=== PATIENT | male | born 1970 | race Caucasian/White ===

== ENCOUNTER 2019-06-23 06:33 | Outpatient (RCR) | payer MEDICAID ==
[~2019-06-23] VITALS: Ht 177.8 cm; Wt 93.2 kg
[2019-06-23] MEDS ORDERED: PARO20TA5 PO (12:02)
[2019-06-23] MEDS ORDERED: DESM0.2T29 PO (12:02)
[2019-06-23] MEDS ORDERED: CETI10TA17 PO (12:02)
[2019-06-23] MEDS ORDERED: BENZ1TAB6 PO (12:02)
[2019-06-23] MEDS ORDERED: MELA1TAB15 PO (12:02)
[2019-06-23] MEDS ORDERED: DIVA-76 PO (12:02)
[2019-06-23] MEDS ORDERED: BENZ0.5T42 PO (12:02)
[2019-06-23] MEDS ORDERED: SIMV20TA26 PO (12:02)
[2019-06-23] MEDS ORDERED: DIVA-74 PO (12:02)
[2019-06-23] MEDS ORDERED: LURA120T PO (12:02)
== END 2019-06-23 15:47 | disposition home or self-care (01) ==
LOC: PREOP 06:33
PROVIDERS: ATTEND Dentist General Practice
DX: Z01.818 Encounter for other preprocedural examination (principal); Z11.59 Encounter for screening for other viral diseases
CPT/HCPCS: 87635

== ENCOUNTER 2019-06-27 06:38 | Day surgery (SDC) | payer MEDICARE, MEDICAID ==
--- NOTE | 2019-06-22 15:57 | HISTORY AND PHYSICAL ---
DATE OF SERVICE: CHIEF COMPLAINT: To have teeth surgery by Dr. Meza, the patient came in with another person who watches over him. ALLERGIC TO MEDICATIONS: Denies. SURGERY PREVIOUSLY: Denies. MEDICATIONS: 1. ____ 1 mg b.i.d. 2. Paxil 20 mg 1 daily. 3. Cetirizine 10 mg 1 daily. 4. Desmopressin 0.2 mg daily. 5. Depakote 500 mg 1 daily. 6. Latuda 80 mg 1 daily. 7. Melatonin 5 mg. 8. Olanzapine 5 mg 1 daily. 9. Simvastatin 20 mg. 10. Tylenol p.r.n. 11. Tums p.r.n. 12. Benadryl p.r.n. FAMILY HISTORY: Denies asthma, TB, diabetes, heart disease, lung disease or cancer. REVIEW OF SYSTEMS: HEAD: Denies headache, dizziness or fainting. EYES, EARS, NOSE AND THROAT: Denies diplopia, tinnitus or sore throat. RESPIRATORY: Denies asthma, TB, coughing, congestion or wheezing. CARDIOVASCULAR: Denies heart problems, chest pain or shortness of breath. GASTROINTESTINAL: Appetite good. Denies blood in stools, diarrhea, constipation, nausea, vomiting. GENITOURINARY: Denies blood, pain or frequency. PHYSICAL EXAMINATION: GENERAL: The patient is a white male, well nourished, well developed, in no acute respiratory distress. VITAL SIGNS: Pulse 72, blood pressure 100/80, height 5 feet 10 inches and weight 205. EARS: No discharge. EYES: No conjunctivitis or icterus. NECK: Thyroid not enlarged. No abnormal cervical lymphadenopathy noted. HEART: Regular rate and rhythm. LUNGS: Clear to auscultation. ABDOMEN: Soft. Liver and spleen nonpalpable. ASSESSMENT AND PLAN: The patient is okay to have teeth surgery. Job ID: [id number] DocumentID: [id number] Dictated Date: 06/22/2019 10:18:02 Ignition Mechanic Date: 06/22/2019 10:53:01 Dictated By: AMARILYS FIELD DO
[~2019-06-27] VITALS: Ht 177.8 cm; Wt 93.2 kg
[2019-06-27] VITALS (7 sets, daily range): BP systolic 107–131; BP diastolic 57–88
[~2019-06-27 06:38] MED LIST: BENZ0.5T42 PO; BENZ1TAB6 PO; CETI10TA17 PO; DESM0.2T29 PO; DIVA-74 PO; DIVA-76 PO; LURA120T PO; MELA1TAB15 PO; PARO20TA5 PO; SIMV20TA26 PO
--- OUTSIDE RECORDS SUMMARY | 2019-06-27 06:42 | XMS REPORT | Continuity of Care Document ---
Author Organization Unknown Address Unknown Phone Unavailable Allergies Active Description Code Type Severity Reaction Onset Reported/Identified Relationship to Patient Clinical Status Yes No Known Drug Allergies [id number] Drug Allergy Unknown N/A 06/23/2019 Medications There is no data. Problems Date Dx Coded Attending Type Code Diagnosis Diagnosed By 01/14/1546 NITA BEGUM DDS Ot Z01.818 ENCOUNTER FOR OTHER PREPROCEDURAL EXAMIN 01/14/1546 NITA BEGUM DDS Ot Z11.59 ENCOUNTER FOR SCREENING FOR OTHER VIRAL Procedures There is no data. Results Test Result Range VALPROIC ACID/DEPAKOTE - 10/04/18 10:30 VALPROIC ACID 118.2 mg/L 50.0-100.0 VALPROIC ACID/DEPAKOTE - 11/01/18 10:13 VALPROIC ACID 100.1 mg/L 50.0-100.0 Coronavirus SARS-CoV-2 SO 2018 - 0 13:15 Coronavirus Ab [Units/volume] in Serum Negative Negative Encounters ACCT No. Visit Date/Time Discharge Status Pt. Type Provider Facility Loc./Unit Complaint [id number] 05/24/2019 09:40:00 05/24/2019 23:59: 59 CLS Outpatient DESIRAE [facility] [id number] 11/01/2018 09:40:00 Document Registration [id number] 10/04/2018 11:00:00 Document Registration [id number] 06/23/2019 06:33:00 020 15:47:00 DIS Outpatient NITA BEGUM DDS [facility] [id number] 06/27/2019 12:30:00 P EN Preadmit NITA BEGUM DDS [facility]
[2019-06-27] MEDS ORDERED: LIDOCAINE PF 2% 5 ML (XYLOCAINE) VIAL ONE (07:01)
[2019-06-27] MEDS ORDERED: SEVOFLURANE (ULTANE) 15 ML INHAL SOLN ONE ×8 (07:01→08:45)
[2019-06-27] MEDS ORDERED: proPOfol 200 MG/20 ML (DIPRIVAN) VIAL IV ONE (07:01)
[2019-06-27] MEDS ORDERED: fentaNYL INJECTION 100 MCG/2 ML AMP ONE (07:02)
[2019-06-27] MEDS ORDERED: NS IV 500 ML 500 ML IV PRN (07:03)
[2019-06-27] MEDS ORDERED: IBUPROFEN SUSP 100MG/5ML (MOTRIN) UDC PO ONE (07:15)
[2019-06-27] MEDS ORDERED: MIDAZOLAM SYRUP (VERSED) 10MG/5ML UDC PO ONE (07:15)
[2019-06-27] MEDS ORDERED: PHENYLEPHRINE 0.25% NASAL SPR (NEO-SYNEPHRINE) 15 ML NS ONE ×2 (07:15→07:16)
[2019-06-27] MEDS ORDERED: MIDAZOLAM 2 MG/2 ML (VERSED) VIAL ONE (07:19)
[2019-06-27] MEDS ORDERED: LACTATED RINGERS 1,000 ML IV PRN (07:24)
[2019-06-27] MEDS ORDERED: ONDANSETRON 4 MG/2 ML (SDV) Z0FRAN ONE (08:45)
[2019-06-27] MEDS ORDERED: ROCURONIUM 10 MG/ML 5 ML SYRINGE IV ONE (08:45)
[2019-06-27] MEDS ORDERED: DEXAMETHASONE 10 MG/ML (DECADRON) 1 ML VIAL ONE (08:45)
[2019-06-27] MEDS ORDERED: NEOSTIGMINE 3 MG/3 ML VIAL ONE (08:56)
[2019-06-27] MEDS ORDERED: GLYCOPYRROLATE 0.2 MG/ML (ROBINUL) 2 ML VIAL ONE (08:56)
--- NOTE | 2019-06-27 14:34 | Anesthesia-General Post-Op ---
General Patient Condition Mental Status/LOC: Same as Preop Cardiovascular: Satisfactory Nausea/Vomiting: Absent Respiratory: Satisfactory Pain: Controlled Complications: Absent Post Op Complications Complications None Follow Up Care/Instructions Patient Instructions None needed. Anesthesia/Patient Condition Patient Condition Patient is doing well, no complaints, stable vital signs, no apparent adverse anesthesia problems. No complications reported per nursing. PERRY GUIDRY CRNA June 27, 2019 14:34
--- NOTE | 2019-06-27 15:47 | OPERATIVE REPORT ---
DATE OF SERVICE: 06/27/2019 PREOPERATIVE DIAGNOSIS: Dental caries. POSTOPERATIVE DIAGNOSIS: Dental caries. OPERATION PERFORMED: Repair of numerous carious teeth and extraction of others utilizing composite resin and stainless steel crowns as well as vital pulp cap therapy. DESCRIPTION OF PROCEDURE: The patient was treated on an outpatient basis and following suitable premedication, was taken to the operating room and placed in the supine position upon the table. Anesthesia was induced. General anesthesia was administered and throat pack was placed consisting of one wet 4 x 4 gauze sponge and maintained in place throughout the procedure. Mouth opening was maintained at all times with simple digital pressure. No mechanical retractors of any kind were utilized. Caries was removed from teeth numbers 3, 6 14, 15, 29 and 31 and teeth numbers 6, 15 and 29, subsequently repaired with composite resin. Tooth #30 and following caries removal received the indirect pulp cap and then a stainless steel crown was placed. Teeth numbers 3, 14 and 31 were extracted. The patient tolerated this brief procedure quite nicely and following a thorough debridement of the oral cavity with a copious fluid border, adequate flexion and compressed air. The throat pack was removed. The patient was extubated and taken to recovery in quite satisfactory condition. Job ID: [id number] DocumentID: [id number] Dictated Date: 06/27/2019 14:40:58 Fact Checker Date: 06/27/2019 15:47:02 Dictated By: NITA BEGUM DDS
== END 2019-06-27 10:20 | disposition home or self-care (01) ==
LOC: SDC 06:38
PROVIDERS: ATTEND Dentist General Practice
DX: K02.9 Dental caries, unspecified (principal); E78.5 Hyperlipidemia, unspecified; J30.9 Allergic rhinitis, unspecified; Z79.899 Other long term (current) drug therapy; Z88.0 Allergy status to penicillin
CPT/HCPCS: 87081

== ENCOUNTER 2021-03-06 16:12 | Emergency (ER) | payer MEDICARE, MEDICAID ==
[~2021-03-06] VITALS: Ht 170 cm; Wt 90.0 kg
--- OUTSIDE RECORDS SUMMARY | 2021-03-06 16:17 | XMS REPORT | Clinical Summary ---
Author Author [facility] Organization [facility] Address Unknown Phone Unavailable Care Team Providers Care Transportation Dispatch Manager Name Role Phone PCP Unavailable Allergies Not on File Medications Not on file Active Problems Not on file Social History Date Tobacco Use Types Packs/Day Years Used Never Assessed Sex Assigned at Date Recorded Not on file Last Filed Vital Signs Not on file Plan of Treatment Not on file Results Not on filefrom Last 3 Months
[2021-03-06] MEDS ORDERED: NS IV 1000 ML 1,000 ML IV SCH (16:30)
[2021-03-06] MEDS ORDERED: BENZTROPINE 2 MG/2 ML INJ (COGENTIN) AMP IV ONE (16:30)
--- NOTE | 2021-03-06 16:33 | ED General ---
General Chief Complaint: Neurological Problems Stated Complaint: STROKE SYMPTOMS Nursing Triage Note: ARRIVED VIA AMB TO ROOM 07. WORKER STATES BETWEEN 9-10 AM HE STARTED NOTICING A CHANGE IN THE PT. NOT MAKING SENSE AND NOT ABLE TO DO SIMPLE TASKS. Source of Information: Patient, Caregiver Exam Limitations: No Limitations History of Present Illness Date Seen by Provider: Mar 06, 2021 Time Seen by Provider: 16:12 Initial Comments Patient to the ER by private conveyance with caregiver from the long term where he lives with chief complaint that he typically is highly functioning doing his own laundry but they found him in the laundry room throwing paper towels into the wash machine. He had some confused speech. He is typically oriented at baseline. He is not have any lateralizing symptoms. No history of stroke or atrial fibrillation. Not on any blood thinners. No trauma except for a fall 2 weeks ago. He was doing fine earlier this morning however the staff member who accompanies him states the last known well time was 10:00 this morning. He is not having any weakness. He is complaining of pain in his fingers. He does not endorse dysuria diarrhea nausea vomiting or constipation. He is on olanzapine, antiepileptics, benztropine which she has received all his medications this morning but not his 5:00 evening meds. Patient is oriented to time and place as well as situation. He has a roommate in his long term with COVID-19. Allergies and Home Medications Allergies Coded Allergies: No Known Drug Allergies (Unverified , 06/23/19) Patient Home Medication List Home Medication List Reviewed: Yes Benztropine Mesylate (Benztropine Mesylate) 0.5 Mg Tablet, 0.5 MG PO DAILY, (Reported) Entered as Reported by: MOHSEN PAZ on 06/23/191201 Benztropine Mesylate (Benztropine Mesylate) 1 Mg Tablet, 1 MG PO HS, (Reported) Entered as Reported by: MOHSEN PAZ on 06/23/191201 Cetirizine HCl (Cetirizine HCl) 10 Mg Tablet, 10 MG PO DAILY, (Reported) Entered as Reported by: MOHSEN PAZ on 06/23/191201 Desmopressin Acetate (Desmopressin Acetate) 0.2 Mg Tablet, 0.2 MG PO DAILY, (Reported) Entered as Reported by: MOHSEN PAZ on 06/23/19 120 Divalproex Sodium (Divalproex Sodium) 250 Mg Tablet.dr, 250 MG PO DAILY, (Reported) Entered as Reported by: MOHSEN PAZ on 06/23/19 120 Divalproex Sodium (Divalproex Sodium) 500 Mg Tablet.dr, 500 MG PO HS, (Reported) Entered as Reported by: MOHSEN PAZ on 06/23/19 120 Lurasidone HCl (Latuda) 120 Mg Tablet, 120 MG PO DAILY@1800, (Reported) Entered as Reported by: MOHSEN PAZ on 06/23/19 120 Melatonin/Pyridoxine (Melatonin 5 mg Tablet) 1 Each Tablet, 5 MG PO HS, (Reported) Entered as Reported by: MOHSEN PAZ on 06/23/19 120 Paroxetine HCl (Paroxetine HCl) 20 Mg Tablet, 20 MG PO DAILY, (Reported) Entered as Reported by: MOHSEN PAZ on 06/23/19 120 Simvastatin (Simvastatin) 20 Mg Tablet, 20 MG PO HS, (Reported) Entered as Reported by: MOHSEN PAZ on 06/23/19 120 Review of Systems Review of Systems Constitutional: No chills, No diaphoresis EENTM: No ear discharge, No hearing loss, No ear pain Respiratory: No cough, No short of breath Cardiovascular: No chest pain, No edema Gastrointestinal: No abdominal pain, No constipation, No diarrhea, No nausea, No vomiting Genitourinary: No discharge, No dysuria Musculoskeletal: No back pain, No joint pain Skin: No pruritus, No rash Psychiatric/Neurological: Denies Anxiety, Denies Depressed All Other Systems Reviewed Negative Unless Noted: Yes Past Oifgtob-[id number]-[id number] Hx Patient Social History Tobacco Use?: No Use of E-Cig and/or Vaping dev: No Immunizations Up To Date PED Vaccines UTD: No Seasonal Allergies Seasonal Allergies: Yes Past Medical History Surgeries: No Respiratory: No Cardiac: No Neurological: Yes Genitourinary: No Gastrointestinal: No Musculoskeletal: No Endocrine: No HEENT: Yes Cancer: No Psychosocial: Yes Sleep Difficulties Integumentary: No Blood Disorders: No Physical Exam Vital Signs Vital Signs - First Documented 03/06/21 16:15 Temp 39.9 Pulse 110 Resp 16 B/P (MAP) 127/112 (117) Pulse Ox 100 O2 Delivery Room Air Capillary Refill : Less Than 3 Seconds Height, Weight, BMI Height: '" Weight: lbs. oz. kg; 31.00 BMI Method: General Appearance: Anxious, Mild Distress Eyes: Bilateral Eye Normal Inspection, Bilateral Eye PERRL, Bilateral Eye EOMI HEENT: PERRL/EOMI, TMs Normal, Normal ENT Inspection; No Pharynx Normal, No Moist Mucous Membranes (Dry oral mucosa) Neck: Full Range of Motion, Normal Inspection Respiratory: Lungs Clear, Normal Breath Sounds, No Accessory Muscle Use, No Respiratory Distress Cardiovascular: Regular Rate, Rhythm, No Edema, Normal Peripheral Pulses Gastrointestinal: Normal Bowel Sounds, No Organomegaly, Non Tender, Soft Neurologic/Psychiatric: Alert, Oriented x3, No Motor/Sensory Deficits Skin: Normal Color, Warm/Dry, Other (Dry, bloody cuticles all fingers) Progress/Results/Core Measures Suspected Sepsis SIRS Temperature: Pulse: 110 Respiratory Rate: 16 Laboratory Tests 03/06/21 16:28: White Blood Count 7.0 Blood Pressure 127 /112 Mean: 117 Laboratory Tests 03/06/21 16:28: Creatinine 0.89, Platelet Count 207, Total Bilirubin 0.4 Results/Orders Lab Results Laboratory Tests Test 03/06/21 16:24 03/06/21 16:28 Range/Units Influenza Type A (RT-PCR) Not Detected Not Detecte Influenza Type B (RT-PCR) Not Detected Not Detecte SARS-CoV-2 RNA (RT-PCR) Detected H Not Detecte White Blood Count 7.0 4.3-11.0 10^3/uL Red Blood Count 3.76 L 4.30-5.52 10^6/uL Hemoglobin 12.0 L 13.3-17.7 g/dL Hematocrit 34 L 40-54 % Mean Corpuscular Volume 91 80-99 fL Mean Corpuscular Hemoglobin 32 25-34 pg Mean Corpuscular Hemoglobin Concent 35 32-36 g/dL Red Cell Distribution Width 12.0 10.0-14.5 % Platelet Count 207 130-400 10^3/uL Mean Platelet Volume 9.2 9.0-12.2 fL Immature Granulocyte % (Auto) 0 % Neutrophils (%) (Auto) 71 42-75 % Lymphocytes (%) (Auto) 19 12-44 % Monocytes (%) (Auto) 9 0-12 % Eosinophils (%) (Auto) 0 0-10 % Basophils (%) (Auto) 0 0-10 % Neutrophils # (Auto) 5.0 1.8-7.8 X 10^3 Lymphocytes # (Auto) 1.3 1.0-4.0 X 10^3 Monocytes # (Auto) 0.7 0.0-1.0 X 10^3 Eosinophils # (Auto) 0.0 0.0-0.3 10^3/uL Basophils # (Auto) 0.0 0.0-0.1 10^3/uL Immature Granulocyte # (Auto) 0.0 0.0-0.1 10^3/uL Sodium Level 130 L 135-145 MMOL/L Potassium Level 4.7 3.6-5.0 MMOL/L Chloride Level 94 L 98-107 MMOL/L Carbon Dioxide Level 27 21-32 MMOL/L Anion Gap 9 5-14 MMOL/L Blood Urea Nitrogen 20 H 7-18 MG/DL Creatinine 0.89 0.60-1.30 MG/DL Estimat Glomerular Filtration Rate 104 BUN/Creatinine Ratio 22 Glucose Level 94 70-105 MG/DL Calcium Level 9.3 8.5-10.1 MG/DL Corrected Calcium 8.9 8.5-10.1 MG/DL Total Bilirubin 0.4 0.1-1.0 MG/DL Aspartate Amino Transf (AST/SGOT) 29 5-34 U/L Alanine Aminotransferase (ALT/SGPT) 28 0-55 U/L Alkaline Phosphatase 47 40-136 U/L Troponin I < 0.028 <0.028 NG/ML C-Reactive Protein High Sensitivity 0.07 0.00-0.50 MG/DL Total Protein 7.3 6.4-8.2 GM/DL Albumin 4.5 3.2-4.5 GM/DL Serum Alcohol < 10 <10 MG/DL My Orders Orders - SARAN MATIAS Ed Iv/Invasive Line Start (03/06/21 16:26) Ns Iv 1000 Ml (Sodium Chloride 0.9%) (03/06/21 16:30) Covid 19 Inhouse Test (03/06/21 16:26) Influenza A And B By Pcr (03/06/21 16:26) Cbc With Automated Diff (03/06/21 16:26) Comprehensive Metabolic Panel (03/06/21 16:26) Hs C Reactive Protein (03/06/21 16:26) Alcohol (03/06/21 16:26) Benztropine Injection (Cogentin Injectio (03/06/21 16:30) Ekg Tracing (03/06/21 16:34) Continuous Ekg Monitoring (03/06/21 16:34) Troponin I [place] (03/06/21 16:34) Olanzapine Orally Dissolve Tab (Zyprexa (03/06/21 18:00) Medications Given in ED Current Medications Medications Dose Ordered Sig/Manisha Route Start Time Stop Time Status Last Admin Dose Admin Benztropine Mesylate 2 mg ONCE ONCE IV 03/06/21 16:30 03/06/21 16:31 DC 03/06/21 16:41 2 MG Vital Signs/I&O 03/06/21 16:15 Temp 39.9 Pulse 110 Resp 16 B/P (MAP) 127/112 (117) Pulse Ox 100 O2 Delivery Room Air Capillary Refill : Less Than 3 Seconds Blood Pressure Mean: 117 Progress Note #1: Time: 16:31 Progress Note Patient is oriented and does follow commands however he does appear agitated confused and looks like he is having an agitated hyperactive delirium. 2 mg IV Cogentin have been ordered. Were looking for infectious under lying cause versus medication versus other. He has COVID exposures in the home so we will get a swab of COVID and influenza if his viral panel is negative then we would consider expanding to a septic work-up. We will attempt to collect urine and get a chest x-ray Progress Note #2: Time: 17:52 Progress Note Patient Delirium is a little better after the benztropine. He is not actually having dystonic reaction is much as he is having delirium secondary to COVID. We discontinued the CT scan and urinalysis. He is gotten his liter of fluids. His more oral mucosa is moist. Staff says he is been drinking very well and has had good vital signs. We will have him take vital signs daily give him some Imodium, Zofran and give him his olanzapine a little early before he leaves. Return precautions were discussed. ECG Initial ECG Impression Date: Mar 06, 2021 Initial ECG Impression Time: 16:18 Initial ECG Rate: 107 Initial ECG Rhythm: S.Tach Initial ECG Intervals: LA (207) Initial ECG Impression: Normal Initial ECG Comparisson: No Previous ECG Available Comment Sinus tachycardia without clinically relevant ST elevation or depression. Departure Impression Primary Impression: COVID-19 Additional Impression: Delirium due to another medical condition, acute, hyperactive Disposition: 01 HOME, SELF-CARE Condition: Stable Departure-Patient Inst. Decision time for Depature: 17:53 Referrals: AMARILYS FILED DO (PCP) Primary Care Physician Patient Instructions: Delirium (Confusion) (DC), COVID-19 (DC) Add. Discharge Instructions: COVID-19 infection is not causing any difficulties with breathing right now. It is probably responsible for loose stools nausea or vomiting. The delirium or confusion that will wax and wane over the next week or so is caused by the COVID-19. The best thing is to keep him in familiar environment. Check his vitals once a day for the next week. If his oxygen saturations are consistently below 90% while at rest then he needs to return to the ER. He needs to drink plenty of fluids over the next week. If he has diarrhea give him 2 tablets of Imodium followed by 1 tablet every 4 hours afterwards that he still is having loose watery diarrhea. If he has nausea or vomiting give him ondansetron under the tongue every 6 hours. Isolation, wash hands and wear a mask around other people until 03/16/2021. Must be fever free for the final 24 hours to come off isolation. Follow-up with PCP as needed for symptom management. All discharge instructions reviewed with patient and/or family. Voiced understanding. Scripts Loperamide HCl (Imodium A-D) 2 Mg Capsule 4 MG PO Q4H PRN for DIARRHEA, #20 CAP 0 Refills 2 tablets for diarrhea followed by 1 tablet every 4 hours afterwards until watery diarrhea stops Prov: SARAN MATIAS 03/06/21 Ondansetron (Ondansetron Odt) 4 Mg Tab.rapdis 4 MG PO Q6H PRN for NAUSEA/VOMITING, #10 TAB 0 Refills Prov: SARAN MATIAS 03/06/21 Copy Copies To 1: AMARILYS FIELD TITUS J Mar 06, 2021 16:33
[2021-03-06 16:42] LABS: BASOPHILS % (AUTO) 0 % (0-10); EOSINOPHILS % (AUTO) 0 % (0-10); HEMATOCRIT 34 % (40-54); LYMPHOCYTES # (AUTO) 1.3 X 10^3 (1.0-4.0); LYMPHOCYTES % (AUTO) 19 % (12-44); MEAN CORPUSCULAR HEMOGLOBIN 32 pg (25-34); MEAN CORPUSCULAR HGB CONC 35 g/dL (32-36); MEAN CORPUSCULAR VOLUME 91 fL (80-99); MEAN PLATELET VOLUME 9.2 fL (9.0-12.2); MONOCYTES # (AUTO) 0.7 X 10^3 (0.0-1.0); MONOCYTES % (AUTO) 9 % (0-12); NEUTROPHILS % (AUTO) 71 % (42-75); PLATELET COUNT 207 10^3/uL (130-400)
[2021-03-06 16:53] LABS: ALBUMIN 4.5 GM/DL (3.2-4.5); CHLORIDE 94 MMOL/L (98-107); POTASSIUM 4.7 MMOL/L (3.6-5.0); SODIUM 130 MMOL/L (135-145)
[2021-03-06 16:55] LABS: CALCIUM 9.3 MG/DL (8.5-10.1)
[2021-03-06 16:56] LABS: GLUCOSE 94 MG/DL (70-105); TOTAL PROTEIN 7.3 GM/DL (6.4-8.2)
[2021-03-06 16:57] LABS: CARBON DIOXIDE 27 MMOL/L (21-32)
[2021-03-06 16:58] LABS: BILIRUBIN,TOTAL 0.4 MG/DL (0.1-1.0)
[2021-03-06 16:59] LABS: ALKALINE PHOSPHATASE 47 U/L (40-136)
[2021-03-06 17:00] LABS: CREATININE SERUM 0.89 MG/DL (0.60-1.30); GFR ESTIMATED 104
[2021-03-06 17:01] LABS: BUN/CREATININE RATIO 22
[2021-03-06 17:03] LABS: ALANINE AMINOTRANSFERASE 28 U/L (0-55)
[2021-03-06] MEDS ORDERED: LOPE-175 PO (18:00)
[2021-03-06] MEDS ORDERED: ONDA4TAB11 PO (18:00)
[2021-03-06] MEDS ORDERED: OLANZapine 5 MG ODT (ZyPREXA ZYDIS) PO ONE (18:00)
[2021-03-06 18:14] VITALS: BP 162/91
== END 2021-03-06 18:14 | disposition home or self-care (01) ==
LOC: EDUNIT# 16:12 → ER 16:14
DX: U07.1 COVID-19 (principal); F05 Delirium due to known physiological condition
CPT/HCPCS: 80053; 84484; 85025; 86141; 87636; 99284; G0480; 36415; 80320